=== PATIENT | female | born 1965 | race Caucasian/White ===

== ENCOUNTER 2017-08-16 22:17 | Observation (INO) ==
[2017-08-16] MEDS ORDERED: 0.9 % Sodium Chloride 1,000 ML IVC ONE (22:35)
[2017-08-16 22:52] LABS: Basophils # 0.1 K/mcL (0.0-0.2); Basophils % 0.6 %; Eosinophils # 0.4 K/mcL (0.0-0.6); Eosinophils % 5.2 %; Hematocrit 37.6 % (35.3-44.9); Hemoglobin 13.1 g/dL (11.5-15.4); Immature Granulocytes % 0.1 % (0-4); Lymphocytes % 37.2 %; Mean Corpuscular HGB Conc 34.8 g/dL (31.6-35.5); Mean Corpuscular Hemoglobin 34.5 pg (28.0-33.3); Mean Corpuscular Volume 98.9 fL (83.0-100.0); Mean Platelet Volume 10.8 fL (9.4-12.4); Monocytes # 0.5 K/mcL (0.0-1.3); Monocytes % 5.9 %; Neutrophils # 4.1 K/mcL (1.6-8.9); Platelet Count 259 K/mcL (140-400); Red Cell Distribution Width 12.2 % (11.5-14.5)
--- NOTE | 2017-08-16 22:52 | Emergency Department Note ---
Disposition Clinical Impression: Near syncope Disposition: Admitted As Inpatient Condition: Good Referrals: Charito Anne, SENIOR CLIENT ADVISOR [Primary Care Provider] - Forms: ED Satisfaction Letter, Work/School Release General Adult HPI - General Chief complaint: ED General Medical Stated complaint: dizziness Time Seen by Provider: 08/16/17 22:22 Source: patient Mode of arrival: private vehicle Limitations: no limitations Nursing Notes Reviewed: Yes Vital Signs Reviewed: Yes - History of Present Illness HPI Narrative: 52-year-old female history of non-oxygen dependent COPD, asthma who presents to the ER due to a near syncopal episode. Patient states around 5:30 PM today while she was cooking supper that she felt like she was going to pass out. She states she was nauseous and then lightheaded. States that she stopped and laid down and ate something and then went away. She reports she has felt weak ever since. She denies a prior history of near-syncope or syncope in the past. No history of cardiac disease. No history of DVT or PE. She states that she did eat lunch. She states that her chest was feeling uncomfortable over the last few hours as well. She has had a cough with productive sputum. She does state that she did have an extra monster energy drink today. No other complaints. Pt Subjective Complaint: near syncope Onset (ago): hour(s) Radiation: non-radiation Pain Scale: 0 Consistency: now resolved Improves with: nothing Worsens with: nothing Associated symptoms: Reports: chest pain, cough. Denies: fever/chills, headaches, nausea/vomiting Treatments Prior to Arrival: none - Related Data Home Medications Medication Instructions Recorded Confirmed Centrum Silver Women Tablet 08/04/16 Mucinex 08/04/16 Prevacid 08/04/16 Serevent Diskus 08/04/16 Vitamin D 08/04/16 Previous Rx's Medication Instructions Recorded Azithromycin [Zithromax] 250 mg PO DAILY #6 tablet 08/04/16 Benzonatate [Tessalon] 200 mg PO TID PRN #30 capsule 08/04/16 Sulfamethoxazole/Trimeth DS 1 each PO BID #10 tablet 09/28/16 [Bactrim DS] Allergies Allergy/AdvReac Type Severity Reaction Status Date / Time Penicillins [PCN] Allergy Rash Verified 08/04/16 19:37 All systems ED: reviewed and negative except as stated. Constitutional: Denies: fever Cardiovascular: Reports: chest pain, palpitations Respiratory: Reports: cough. Denies: dyspnea Gastrointestinal: Denies: abdominal pain, nausea, vomiting Neurological: Reports: weakness. Denies: headache, numbness, paresthesias Past Medical History - Past Medical History Attestation: Yes The following information was validated with the patient. Source: patient Medical history: Reports: asthma, COPD Psychiatric history: Reports: no psych history - Social History Smoking Status: Current every day smoker Smokeless Tobacco Status: No Alcohol use: Reports: occasionally Drug use: Reports: none Physical Exam - General Limitations: no limitations General appearance: alert, in no apparent distress - Head Head exam: atraumatic, normocephalic, normal inspection - Eye Eye exam: Present: normal appearance, PERRL, EOMI - ENT ENT exam: normal exam - Neck Neck exam: Present: normal inspection, full ROM - Chest Chest inspection: Present: normal inspection, symmetric chest wall rise - Respiratory Respiratory exam: Present: normal lung sounds bilaterally - Cardiovascular Cardiovascular exam: Present: regular rate, normal rhythm, normal heart sounds - Abdominal Exam Abdominal exam: Present: soft, Non-Tender. Absent: tenderness - Extremities Exam Extremities exam: Present: normal inspection, full ROM - Expanded Upper Extremity Exam Shoulder exam: Present: normal inspection, full ROM Arm exam: Present: normal inspection, full ROM Elbow exam: Present: normal inspection, full ROM Forearm/Wrist exam: Present: normal inspection, full ROM Hand exam: Present: normal inspection, full ROM Vascular exam: Normal: radial pulse - Expanded Lower Extremity Exam Hip/Pelvis exam: Present: normal inspection, full ROM Upper leg exam: Present: normal inspection, full ROM Knee exam: Present: normal inspection, full ROM Lower leg exam: Present: normal inspection, full ROM Ankle exam: Present: normal inspection, full ROM Foot/toe exam: Present: normal inspection, full ROM Neurovascular/Tendon exam: Absent: motor deficit, sensory deficit - Neurological Exam Neurological exam: Present: alert, oriented X3, CN II-XII intact. Absent: motor sensory deficit - Expanded Neurological Exam Speech: Present: fluid speech Cranial nerves: EOM function (II, III, IV, ): Normal, facial sensation (V): Normal, spinal accessory function (XI): Normal, tongue deviation (XII): Normal Cerebellar function: finger to nose: Normal, heel to michele: Normal Motor strength - LUE: 5/5 Motor strength - RUE: 5/5 Motor strength - LLE: 5/5 Motor strength - RLE: 5/5 Sensory exam upper extremity: light touch: Normal Sensory exam lower extremity: light touch: Normal Coma Scale Eye Opening: Spontaneous Coma Scale Motor Response: Obeys Commands Coma Scale Verbal Response: Oriented Coma Scale Total: 15 - Psychiatric Psychiatric exam: Present: normal affect, normal mood - Skin Skin exam: Present: warm, dry, intact, normal color Course Course Narrative: Patient seen and examined. Vital signs reviewed. We will obtain an EKG, chest x-ray as well as labs including troponin. Patient checked for orthostatic vitals as well as fluid bolus. - Reevaluation(s) Reevaluation #1: Discussed results of imaging and lab work with the patient. She is agreeable with staying. We will admit the hospitalist service. Vital Signs Temperature 97.8 F 08/16/17 22:18 Pulse Rate 94 08/16/17 22:18 Respiratory Rate 20 08/16/17 22:18 Blood Pressure 127/89 08/16/17 22:18 O2 Sat by Pulse Oximetry 97 08/16/17 22:18 Temperature 97.8 F 08/16/17 22:18 Pulse Rate 86 08/16/17 23:10 Respiratory Rate 20 08/16/17 22:18 Blood Pressure 130/89 08/16/17 23:10 O2 Sat by Pulse Oximetry 97 08/16/17 22:43 Oxygen Delivery Oxygen Delivery Room Air Medical Decision Making - MDM Narrative Medical decision making narrative: 52-year-old female presents to the ER due to a near syncopal episode. EKG here shows no ischemic features. Chest x-ray unremarkable. Troponin within normal limits. Patient given 1 L of normal fluids. Still continues to feel weak. Patient admitted to the hospitalist service for near-syncope. - Lab Data Lab results reviewed: Yes I reviewed the patient's lab results. Result diagrams: 08/16/17 22:42 08/16/17 22:42 Lab Results 08/16/17 08/16/17 08/16/17 Range/Units 22:42 22:42 22:42 WBC 8.0 (4.3-11.1) K/mcL RBC 3.80 L (3.82-4.97) M/mcL Hgb 13.1 (11.5-15.4) g/dL Hct 37.6 (35.3-44.9) % MCV 98.9 (83.0-100.0) fL MCH 34.5 H (28.0-33.3) pg MCHC 34.8 (31.6-35.5) g/dL RDW 12.2 (11.5-14.5) % Plt Count 259 (140-400) K/mcL MPV 10.8 (9.4-12.4) fL Immature Gran % 0.1 (0-4) % Seg Neutrophils % 51.0 % Lymphocytes % 37.2 % Monocytes % 5.9 % Eosinophils % 5.2 % Basophils % 0.6 % Neutrophils # 4.1 (1.6-8.9) K/mcL Lymphocytes # 3.0 (0.6-4.6) K/mcL Monocytes # 0.5 (0.0-1.3) K/mcL Eosinophils # 0.4 (0.0-0.6) K/mcL Basophils # 0.1 (0.0-0.2) K/mcL Sodium 141 (136-145) mEq/L Potassium 3.5 (3.5-4.5) mEq/L Chloride 108 (98-109) mEq/L Carbon Dioxide 25 (19-29) mEq/L BUN 11 (7-20) mg/dL Creatinine 0.77 (0.57-1.11) mg/dL Est GFR ( Amer) > 60 (> 60) Est GFR (Non-Af Amer) > 60 (> 60) BUN/Creatinine Ratio 14 (6-26) Glucose 119 H (70-99) mg/dL Calculated Osmolality 293 (280-300) Calcium 9.4 (8.6-10.8) mg/dL Troponin I 0.00 (0-0.03) ng/mL - Radiology Data Radiology results reviewed: Yes I reviewed the patient's radiology results. Chest X-Ray 08/16/17 22:35 IMPRESSION: No acute findings. D/ / Greta Frye MD / Greta Frye MD Interpreting Provider: Greta Frye MD - EKG Data EKG #1 EKG attestation: Yes I reviewed and interpreted this EKG. EKG results narrative: EKG demonstrates sinus rhythm with sinus arrhythmia with a rate of 80 bpm. Normal axis. Normal intervals. Normal R-wave progression. No gross ST elevations or depressions. No acute ischemic findings. No significant changes from previous EKG dated 04/11/07. Linda - Linda Situation: Demographics, MOA Background: Presenting Complaint, Relevant PMH, Meds, & Allergies Assessment: Vital Signs, Course and respsone to treatment, Exam Concerns, Patient/Family Expectation, Pertinant Lab Results Recommendation: Barrier(s) to disposition, Recommendation based on pending studies, treatments, or consults SCollin Report Given to: Dr. Salvador Mckeon Repor Time: 00:40 Attestation Statement - Attestation Attestation: I, Marko Joseph DO, examined this patient [id number] and my medical decision-making was reviewed with Dr. Fabien Yeung, Resident Physician. I agree with the documented findings, disposition and treatment plan as described except to the extent set forth below. Please see my progress notes for details. 52-year-old female presents to the emergency room with near syncopal event at home. Patient had palpitations chest tightness and tunnel vision during the event. She has a history of panic attacks but has not had one in years. Patient has had lots of stress at home unless several days. Currently she is denying fevers chills nausea vomiting diarrhea. Denies headache vision changes chest pain or shortness of breath. Patient had complete resolution of symptoms within seconds of initial onset. She has not had any reemergence of the symptoms here. EKG chest x-ray laboratory workup otherwise unremarkable here. We discussed the concern for near syncopal event of unknown etiology along with the patient's good medical history with no significant medical issues. After a lengthy discussion and shared decision making was utilized and the patient decided to be discharged home. Patient otherwise has no acute pathology on evaluation. She does not show any acute signs of palpitations cardiac arrhythmia or N abnormalities. Her EKG does not show any acute signs of WPW, Brugada, morphology changes or or signs of interval abnormality. Patient is stable discharged home in good medical condition. See detailed documentation of physical exam, medical intervention, medical decision-making and disposition and the resident physician's note Patient elected to be admitted at this time. Her syncopal event. Admission process to be completed.
[2017-08-16 23:04] LABS: BUN/Creatinine Ratio 14 (6-26); Blood Urea Nitrogen 11 mg/dL (7-20); Calcium 9.4 mg/dL (8.6-10.8); Carbon Dioxide 25 mEq/L (19-29); Chloride 108 mEq/L (98-109); Glucose 119 mg/dL (70-99); Osmolality,Calculated 293 (280-300); Potassium 3.5 mEq/L (3.5-4.5); Sodium 141 mEq/L (136-145); eGFR For African Americans > 60 (> 60); eGFR For Non-African Americans > 60 (> 60)
[2017-08-17 01:10] LABS: Thyroid Stimulating Hormone 0.759 mcIU/mL (0.350-4.840)
[2017-08-17] MEDS ORDERED: Naloxone 0.4 MG/ML INJ IVP PRN (06:15)
[2017-08-17] MEDS ORDERED: Albuterol 2.5 MG/3 ML NEBULIZER IH PRN (06:15)
[2017-08-17] MEDS ORDERED: Acetaminophen 325 MG TABLET PO PRN (06:15)
--- NOTE | 2017-08-17 06:24 | Internal Med History&Physical ---
Date of Encounter: 08/17/17 Time of Encounter: 06:19 Assessment and Plan (1) Near syncope Current visit: Yes Status: Acute 1. Will cycle troponins and EKG's. 2. Will order ECHO and carotid Dopplers. 3. When patient feels better from COPD flare, she needs a stress test -- can be done as outpatient. 4. Recommend she stop drinking energy drinks. 5. Recommend referral to cardiology as outpatient for further work-up for dysrhythmia. (2) COPD exacerbation Current visit: Yes Status: Acute 1. Will treat with aerosols, steroids, antibiotics, and oxygen if needed. 2. Smoking cessation well advised. (3) DVT prophylaxis Current visit: Yes Status: Acute 1. Heparin SQ. Internal Medicine - H&P: HPI Chief complaint: racing heartbeat; near syncope Admitted From: Emergency Dept Plans for Post Hospital Care: Home History of present illness: Ms. Perry is a 52 year old female who presents with complaints of near syncope after having sustained racing heartbeats for several hours yesterday. She was in the kitchen cooking yesterday evening when she noticed her heart racing and it sustained for several hours. She became lightheaded and dizzy and almost passed out. However, she was able to brace herself and dropped to the floor without passing out. After several hours of sustained tachycardia, she came to the ER. However, by the time she arrived to the ER, she appeared to be normal rhythm and without tachycardia. She was subsequently admitted to hospitalist service. Upon my assessment of the patient, she feels fine now other than some lingering cough, congestion, and wheezing. She has COPD and asthma and is a smoker. She has been battling a COPD flare for the last month to 5 weeks. She had been on a course of antibiotics about 3 weeks ago without relief. She denies any fevers , vomiting, or diarrhea. She also admits to drinking 2-3 energy drinks per day. I suspect this may be leading to some tachyarrhythmia as well. Family history is pertinent for her father and her father's family members who suffered and/or from premature coronary disease. Past Med Surg Social Fam HX - Past Medical History Attestation: Yes The following information was validated with the patient. Source: patient, old records reviewed Medical history: asthma, COPD Psychiatric history: no psych history - Past Surgical History Surgical History: no surgical history - Social History Smoking Status: Current every day smoker Packs per day: 1 Smokeless Tobacco Status: No Alcohol use: occasionally Drug use: none Current living situation: Home, With Family Activity Level: Independent ambulation, Very active Recent Out of Country Travel Within the Last 8 Weeks: No - Family History Father Living Status: Hx Family Cardiac Disorders: Yes (OR) Hx Family Neurologic Disorders: Yes (CVA.) Internal Medicine - H&P: Meds Albuterol Sulfate [Ventolin Hfa] 18 gm IH DAILY PRN 08/17/17 [History] Lansoprazole [Prevacid] 20 mg PO DAILY 08/17/17 [History] Salmeterol Xinafoate [Serevent Diskus] 50 mcg IH BID 08/17/17 [History] 3 Allergy/AdvReac Type Severity Reaction Status Date / Time Penicillins [PCN] Allergy Rash Verified 08/04/16 19:37 - Constitutional Constitutional: no chills, no fever(s), no night sweats - EENT Eyes: no blurry vision, no change in vision Ears: no ear pain, no tinnitus Nose, mouth and throat: sore throat, no nasal congestion, no sinus pressure - Cardiovascular Cardiovascular ROS IM: lightheadedness, palpitations, other (+ near syncope), no chest pain, no diaphoresis, no dyspnea, no paroxysmal nocturnal dyspnea - Respiratory Respiratory: cough, dyspnea on exertion, wheezing, chest congestion, excessive phlegm production, change in phlegm color, no hemoptysis - Gastrointestinal Gastrointestinal: heartburn, no abdominal pain, no diarrhea, no hematemesis, no hematochezia, no melena, no nausea, no vomiting - Genitourinary Genitourinary: no dysuria, no flank pain, no hematuria - Musculoskeletal Musculoskeletal ROS IM: no arthralgias, no back pain - Integumentary Integumentary IM: no rash, no jaundice - Neurological Neurological ROS: dizziness, no focal weakness, no frequent falls - Psychiatric Psychiatric: no anxiety, no depression - Endocrine Endocrine IM: no polydipsia, no polyuria - Hematologic/Lymphatic Hematologic/Lymphatic: no easy bruising, no lymphadenopathy - Allergic/Immunologic Allergic/Immunologic: wheezing, GI upset with certain foods - Constitutional Vitals: Temp Pulse Resp BP Pulse Ox 97.9 F 80 16 129/83 97 08/17/17 04:07 08/17/17 04:07 08/17/17 04:07 08/17/17 04:07 08/17/17 04:07 General appearance: Present: cooperative, A&O X 3, pleasant, no acute distress, answers questions appropriately - Head Head exam: Present: atraumatic, normal inspection - Eye Eye exam: Present: EOMI, normal appearance, PERRL. Absent: scleral icterus Pupils: Present: normal accommodation - ENT ENT exam: Present: mucous membranes moist, normal exam - Neck Neck exam general surgery: Present: full ROM, supple. Absent: tenderness, nuchal rigidity - Expanded Neck Exam Neck exam: Absent: carotid bruit - Respiratory Respiratory exam: Present: prolonged expiratory phase, rhonchi, wheezes. Absent : accessory muscle use, chest wall tenderness, rales, respiratory distress - Cardiovascular Cardiovascular exam: Present: RRR, +S1, +S2. Absent: diastolic murmur, JVD, systolic murmur - GI/Abdominal GI/Abdominal exam: Present: normal bowel sounds, soft. Absent: guarding, hepatomegaly, mass, rebound, splenomegaly, tenderness - Extremities Exam Extremities exam: Present: full ROM, normal capillary refill, warm, radial pulses palpable and symmetrical. Absent: calf tenderness, joint swelling, tenderness - Back Exam Back exam: Absent: CVA tenderness (L), CVA tenderness (R) - Neurological Exam Neurological exam: Present: alert, CN II-XII intact, oriented X3, no focal deficits - Psychiatric Psychiatric exam: Present: normal affect, normal mood - Skin Skin exam: Present: dry, warm. Absent: rash Internal Med - H&P Results - Labs CBC & Chem 7: 08/16/17 22:42 08/16/17 22:42 - EKG Data -: EKG Interpreted by Myself EKG shows normal: sinus rhythm - EKG Data Prior EKG available for review: no EKG comments: 08/17/17 06:28 NSR with sinus arrhythmia: no acute changes - Diagnostic Studies Chest x-ray Status: image reviewed by me (negative)
[2017-08-17] MEDS: Ipratropium/Albuterol Neb 3 ML IH SCH ×2 (08:15→11:25)
[2017-08-17] MEDS ORDERED: levoFLOXacin 500 MG TABLET PO SCH (09:00)
[2017-08-17 11:02] VITALS: BP 113/69
--- NOTE | 2017-08-17 11:51 | Discharge Summary ---
Date of Encounter: 08/17/17 Time of Encounter: 11:48 - Discharge Diagnosis (1) Near syncope Priority: Primary Status: Resolved (2) COPD exacerbation Priority: Secondary Status: Acute (3) DVT prophylaxis Priority: Secondary Status: Acute (4) Diastolic dysfunction without heart failure Priority: Secondary Status: Chronic - Discharge Medications Prescriptions: Aspirin Enteric Coated [Aspirin EC] 81 mg PO DAILY #30 tablet. Doxycycline Hyclate 100 mg PO BID #8 capsule predniSONE [PredniSONE] 10 mg PO DAILY 8 Days tablet Home Medications: Albuterol Sulfate [Ventolin Hfa] 18 gm IH DAILY PRN 08/17/17 [History] Aspirin Enteric Coated [Aspirin EC] 81 mg PO DAILY #30 tablet. 08/17/17 [Rx] Doxycycline Hyclate 100 mg PO BID #8 capsule 08/17/17 [Rx] Lansoprazole [Prevacid] 20 mg PO DAILY 08/17/17 [History] Salmeterol Xinafoate [Serevent Diskus] 50 mcg IH BID 08/17/17 [History] predniSONE [PredniSONE] 10 mg PO DAILY 8 Days tablet 08/17/17 [Rx] Allergies/Adverse Reactions: 3 Allergy/AdvReac Type Severity Reaction Status Date / Time Penicillins [PCN] Allergy Rash Verified 08/04/16 19:37 Procedures/tests Complete & Pending: Procedures Performed prior 72 hours Category Date Time Status ECG 12 lead ECG [ECG] AM 0600 Y 08/18/17 06:00 Ordered EV carotid duplex imaging BI Routine Y 08/17/17 06:15 Completed EV echocardiogram Routine Y 08/17/17 06:15 Completed Date of admission: 08/17/17 00:44 Primary care physician: Charito Anne CNP Discharging clinician: Bessy Cao Anticipated date of discharge: 08/17/17 - Patient Status Disposition: Home, Self-Care Condition: Good Functional capacity at discharge: independent ambulation Overall status at discharge: patient is progressing back to baseline - Ambulatory Orders Ambulatory Orders: ECG holter monitor [ECG] Time Frame: 1 Week, Facility: [facility], Location: Cardiopulmonary Svc - Discharge Instructions Instructions: COPD Exacerbation, Press Tender Incendiary Grenade (GEN) Follow Up With: Charito Anne CNP [Primary Care Provider] - (in 1 week) - Diet and Activity Activity: increase activity as tolerated Diet: low fat, low cholesterol, low salt diet Hospital course: Ms. Perry is a 52 year old female patient with past medical history of asthma/ COPD presented to the ER with complaints of near syncope with persistent palpitations. Patient describes feeling of lightheadedness and also fell to the floor slowly without passing out. The palpitations lasted for several hours prior to her coming to the ER. By the time she came to the ER her heart rate was normal. She did not have any abnormalities on her EKG. She was evaluated with a 2-D echocardiogram and carotid Doppler. 2-D echocardiogram shows normal ejection fraction of 60-65% with mild left ventricle or diastolic dysfunction. Carotid Dopplers showed that the patient had 40-59% stenosis in the right internal carotid artery region. She will be placed on low-dose aspirin for this. Patient has not had any further episodes of palpitations or lightheadedness. Patient does drink 2-3 energy drinks everyday which could be causing her palpitations. She has been advised to hold off on these energy drinks. In addition she will be discharged with a Holter monitor to evaluate for any arrhythmia at home. She can follow up with her primary care provider for further management. The patient also was diagnosed with acute bronchitis and will complete short antibiotic course as her symptoms have been going on for couple of weeks now. She will also be discharged on a prednisone taper. - Time Spent with Patient Total time spent providing and/or coordinating discharge services: Less than 30 minutes (20 min) - Constitutional Vitals: Temp Pulse Resp BP Pulse Ox 98.1 F 92 14 113/69 94 08/17/17 10:57 08/17/17 10:57 08/17/17 11:26 08/17/17 10:57 08/17/17 11:26 General appearance: Present: cooperative, A&O X 3, pleasant, no acute distress, answers questions appropriately - Respiratory Respiratory exam: Present: prolonged expiratory phase, wheezes. Absent: accessory muscle use, rales, rhonchi - Cardiovascular Cardiovascular exam: Present: RRR, +S1, +S2. Absent: diastolic murmur, gallop, rubs, systolic murmur - GI/Abdominal GI/Abdominal exam: Present: normal bowel sounds, soft, no peritoneal signs. Absent: distended, tenderness
[2017-08-17] MEDS ORDERED: MethylPREDNISolone 40 MG/ML VIAL IVP SCH (18:00)
[2017-08-17] MEDS ORDERED: *HR* Heparin 5,000 UNIT/ML VIAL SQ SCH (18:00)
--- NOTE | 2017-08-19 09:26 | Electrocardiograph Report ---
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
== END 2017-08-17 14:14 | disposition home or self-care (01) ==
LOC: EMEROO 22:17 → 3BNU 22:17 → SUATTDRO 08-17 00:44 → 3BNU 08-17 01:12
PROVIDERS: ADMIT Pediatrics; ATTEND Internal Medicine